=== PATIENT | female | born 2000 | race Caucasian/White ===

== ENCOUNTER 2020-04-21 17:31 | Emergency (ER) | payer OTHER ==
[~2020-04-21] VITALS: Ht 157.5 cm; Wt 73.8 kg
[2020-04-21] MEDS ORDERED: ALBUTEROL/IPRATROPIUM 2.5MG/0.5MG, 3 ML ONE (17:59)
--- NOTE | 2020-04-21 18:00 | NUR ---
1 WORD SENTENCES. WHEEZING HEARD FROM THE DOOR. ROOM AIR 87. PLACED ON 4L NC, PROVIDER TO BEDSIDE PLAN FOR DUONEB, PO PREDNISON DUONEB ADMNISTERED PER EMAR
--- NOTE | 2020-04-21 18:23 | NUR ---
MEDICATED PER EMAR WITH PREDNISONE PO NEB NEARLY COMPLETE, PATIENT REPORTS MY CHEST TIGHTNESS FROM 10/10 TO 4.5 POX 97% ON ROOM AIR
[2020-04-21] MEDS ORDERED: ALBUTEROL/IPRATROPIUM 2.5MG/0.5MG, 3 ML NPPB SCH (18:30)
--- NOTE | 2020-04-21 18:59 | NUR ---
REPORT TO RODRÍGUEZ DOE
[2020-04-21] MEDS ORDERED: MAGNESIUM SULFATE PMX 2GM/50ML 50 ML IV ONE (19:30)
[2020-04-21] MEDS ORDERED: MAGNESIUM SULFATE PMX 2GM/50ML 50 ML ONE (19:40)
--- NOTE | 2020-04-21 20:04 | NUR ---
IV PLACED, PT CONNECTED TO CARDIAC MONITORING, MEDICATED PER SEP. UPDATED ON POC, ALL MONITORING IN PLACE, CALL LIGHT WITHIN REACH. ALL SAFETY MEASURES IN PLACE, FAMILY AT BS FOR SUPPORT.
[2020-04-21 22:07] VITALS: BP 114/65
== END 2020-04-21 22:15 | disposition home or self-care (01) ==
LOC: ED 21:40
DX: J45.41 Moderate persistent asthma with (acute) exacerbation (principal)
CPT/HCPCS: 71045; 94640; 96365; 96366; 99285; J3475; J7512